=== PATIENT | female | born 1990 | race Caucasian/White ===

== ENCOUNTER → 2017-11-26 | Outpatient (CLI) | payer OTHER ==
[~2017-11-26] MED LIST: ACYC200 PO; ACYC800 PO; AMOX500 PO; DIPH50; HYDACE5 PO; IBUP600 PO; IBUP800 PO; Norco 10-325 T1 EACH PO; Norco 5-325 Ta1 EACH PO; OXYACE5T PO; PRED20 PO; Robaxin500 MG PO; TRIA80TC TOP
[2017-11-27 12:39] LABS: Source Cervix
== END ==
LOC: LAB EV 17:11
PROVIDERS: Nurse Practitioner Family
DX: Z01.419 Encounter for gynecological examination (general) (routine) without abnormal findings (principal)
CPT/HCPCS: 87491; 87591; G0145

== ENCOUNTER → 2018-04-07 | Outpatient (CLI) | payer OTHER | END | disposition home or self-care (01) | LOC: LAB EV 09:04 → LAB SHORT 09:04 | DX: K12.1 Other forms of stomatitis (principal) | CPT/HCPCS: 87070; 87075; 87205 ==

== ENCOUNTER → 2018-12-23 | Outpatient (CLI) | payer OTHER | LOC: LAB SHORT 17:17 → LAB 17:17 | PROVIDERS: Nurse Practitioner Family | DX: Z01.419 Encounter for gynecological examination (general) (routine) without abnormal findings (principal) | CPT/HCPCS: 87624; 87625; G0145 ==

== ENCOUNTER → 2019-03-03 | Outpatient (CLI) | payer OTHER | END | disposition home or self-care (01) | LOC: LAB SHORT 12:52 → PLD 12:52 | DX: R87.618 Other abnormal cytological findings on specimens from cervix uteri (principal); R87.610 Atypical squamous cells of undetermined significance on cytologic smear of cervix (ASC-US) | CPT/HCPCS: 88305 ==

== ENCOUNTER 2019-06-12 13:36 | Emergency (ER) | payer OTHER ==
[~2019-06-12] VITALS: Ht 165.1 cm; Wt 74.8 kg
[2019-06-12] MEDS ORDERED: ONDA4ODT MM (14:30)
== END 2019-06-12 14:54 | disposition home or self-care (01) ==
LOC: ER 13:36
DX: R11.2 Nausea with vomiting, unspecified (principal); R19.7 Diarrhea, unspecified; Z88.5 Allergy status to narcotic agent
CPT/HCPCS: 99283

== ENCOUNTER → 2023-05-18 | Outpatient (CLI) | payer OTHER ==
[~2023-05-18] MED LIST changes: +ONDA4ODT MM
[2023-05-18 13:24] LABS: BASOPHILS ABSOLUTE AUTO 0.03 K/mm3 (0.00-0.23); BASOPHILS PERCENT AUTO 0 % (0-2); EOSINOPHILS ABSOLUTE AUTO 0.03 K/mm3 (0.00-0.68); EOSINOPHILS PERCENT AUTO 0 % (0-6); Hematocrit 41.2 % (33.0-51.0); Hemoglobin 14.6 g/dL (11.5-16.0); IMMATURE GRAN ABSOLUTE AUTO 0.02 K/mm3 (0.00-0.10); IMMATURE GRAN PERCENT AUTO 0 % (0-1); LYMPHOCYTES ABSOLUTE AUTO 1.77 K/mm3 (0.84-5.20); LYMPHOCYTES PERCENT AUTO 22 % (21-46); MONOCYTES ABSOLUTE AUTO 0.51 K/mm3 (0.16-1.47); MONOCYTES PERCENT AUTO 6 % (4-13); Mean Corpuscular HGB 30.2 pg (26.0-34.0); Mean Corpuscular HGB Conc 35.4 g/dL (31.5-36.5); Mean Corpuscular Volume 85 fL (80-100); Mean Platelet Volume 11.8 fL (9.1-12.4); NEUTROPHILS PERCENT AUTO 70 % (41-73); Platelet Count 257 K/mm3 (150-400); RDW Coefficient Variation 12.9 % (11.7-14.2); RDW Standard Deviation 39.8 fL (35.1-46.3); Red Blood Cell Count 4.83 M/mm3 (3.80-5.20); White Blood Cell Count 7.96 K/mm3 (4.00-11.30)
[2023-05-18 13:42] LABS: Albumin, Blood 4.4 g/dL (3.4-5.0); Albumin/Globulin Ratio 1.2 (0.8-1.8); Bilirubin, Total 0.4 mg/dL (0.1-1.0); Bun/Creatinine Ratio 13.3 (12.0-20.0); Calcium, Blood 9.4 mg/dL (8.5-10.1); Creatinine, Blood 1.05 mg/dL (0.40-1.00); Globulin, Blood 3.6 g/dL (2.2-4.0); Potassium, Blood 3.7 mmol/L (3.5-5.5); Thyroid Stimulating Hormone 1.193 uIU/mL (0.360-4.800)
== END ==
LOC: LAB 13:16 → LAB SHORT 13:16
PROVIDERS: Physician Assistant Medical
DX: R42 Dizziness and giddiness (principal)
CPT/HCPCS: 80053; 84443; 85025

== ENCOUNTER → 2023-10-04 | Outpatient (CLI) | payer OTHER | END | disposition home or self-care (01) | LOC: LAB SHORT 15:30 → LAB 15:30 | DX: N93.8 Other specified abnormal uterine and vaginal bleeding (principal) | CPT/HCPCS: 88305 ==

== ENCOUNTER → 2023-10-04 | Outpatient (CLI) | payer OTHER ==
[2023-10-07 12:10] LABS: HPV 16 Negative (Negative); HPV 18 Negative (Negative); HPV OTHER HR TYPES Negative (Negative)
== END ==
LOC: LAB SHORT 11:15 → LAB 11:15
PROVIDERS: Obstetrics & Gynecology
DX: Z01.419 Encounter for gynecological examination (general) (routine) without abnormal findings (principal)
CPT/HCPCS: 87624; G0145

== ENCOUNTER 2023-11-10 05:53 | Day surgery (SDC) | payer OTHER ==
[~2023-11-10] VITALS: Ht 165.1 cm; Wt 86.3 kg
[2023-11-10] VITALS (13 sets, daily range): BP systolic 110–135; BP diastolic 64–80
[~2023-11-10 05:53] MED LIST changes: +FERSU300 PO
--- NOTE | 2023-11-10 07:16 | NUR ---
PT HAS A CLEAN, DRY, AND INTACT ABD BUT HAS A SCABBED OVER SORE THAT IS DRY NEAR THE CENTER OF THE BREASTS, ABOVE THE ZYPHOID PROCESS.
--- NOTE | 2023-11-10 11:13 | NUR ---
PATIENT ARRIVED FROM PACU AT THIS TIME. POD 0 LAP HYSTER PATIENT IS A&OX4. VS ARE WNL AND IS ON RA AT THIS TIME. PATIENTS ABD HAS X4 LAP SITES WITH WOUND GLUE THAT ARE C/D/I. PATIENT DENIES NAUSEA OR VOMITING AT THIS TIME. PATIENTS JD PAD IS ALSO C/D/I AT THIS TIME. PATIENT IS LAYING IN BED WITH CALL LIGHT IN REACH AND SPOUSE AT BEDSIDE. SHE IS TOLERATING SMALL AMOUNTS OF PO INTAKE AT THIS TIME.
[2023-11-10] MEDS ORDERED: IBUP800 PO (12:29)
[2023-11-10] MEDS ORDERED: ACET500 PO (12:29)
[2023-11-10] MEDS ORDERED: OXYC5 PO (12:29)
[2023-11-10] MEDS ORDERED: ONDA4ODT MM (12:29)
--- NOTE | 2023-11-10 17:54 | NUR ---
DISCHARGE SUMMARY POD0 LAP HYSTER, A/OX4, VSS, TOLERATING PO, PAIN WELL MANAGED, AMBULATING, VOIDING. REMOVED IV ACCESS. DISCUSSED DISCHARGE INFORMATION WITH HER INCLUDING HOME CARE, MEDICATIONS, AND FOLLOW UP APPOINTMENTS. NO QUESTIONS AT THIS TIME.
--- NOTE | 2023-11-11 10:26 | NUR ---
11/11/23 1026 Mitzi Brooks VERIFICATIONS: EDIT CHART.
== END 2023-11-10 17:47 | disposition home or self-care (01) ==
LOC: ORSCMMR 05:53 → ORD 07:30 → ORSCMMR 07:30 → SURS 11:11 → ORSCMMR 17:47
PROVIDERS: Obstetrics & Gynecology
PROC: 0UT7FZZ Resection of Bilateral Fallopian Tubes, Via Natural or Artificial Opening With Percutaneous Endoscopic Assistance (ICD-10-PCS; principal; 2023-11-10 07:30)
PROC: 0UT9FZZ Resection of Uterus, Via Natural or Artificial Opening With Percutaneous Endoscopic Assistance (ICD-10-PCS; principal; 2023-11-10 07:30)
DX: N93.8 Other specified abnormal uterine and vaginal bleeding (principal); N70.11 Chronic salpingitis; N83.8 Other noninflammatory disorders of ovary, fallopian tube and broad ligament
CPT/HCPCS: 86850; 86900; 86901; 88307; A9270; J0690; J0780; J1100; J1885; J2250; J2405; J2704; J2765; J3010; J7120

== ENCOUNTER 2023-11-11 19:36 | Emergency (ER) | payer OTHER ==
[~2023-11-11] VITALS: Ht 165.1 cm; Wt 83.9 kg
[~2023-11-11 19:36] MED LIST changes: +ACET500 PO; +OXYC5 PO
[2023-11-11 20:24] LABS: BASOPHILS ABSOLUTE AUTO 0.04 K/mm3 (0.00-0.23); BASOPHILS PERCENT AUTO 0 % (0-2); EOSINOPHILS PERCENT AUTO 0 % (0-6); Hematocrit 35.2 % (33.0-51.0); Hemoglobin 12.3 g/dL (11.5-16.0); IMMATURE GRAN PERCENT AUTO 1 % (0-1); LYMPHOCYTES ABSOLUTE AUTO 1.92 K/mm3 (0.84-5.20); LYMPHOCYTES PERCENT AUTO 9 % (21-46); MONOCYTES ABSOLUTE AUTO 2.06 K/mm3 (0.16-1.47); MONOCYTES PERCENT AUTO 10 % (4-13); Mean Corpuscular HGB 29.9 pg (26.0-34.0); Mean Corpuscular HGB Conc 34.9 g/dL (31.5-36.5); Mean Corpuscular Volume 86 fL (80-100); Mean Platelet Volume 11.3 fL (9.1-12.4); NEUTROPHILS ABSOLUTE AUTO 17.47 K/mm3 (1.96-9.15); NEUTROPHILS PERCENT AUTO 81 % (41-73); Platelet Count 297 K/mm3 (150-400); RDW Coefficient Variation 14.1 % (11.7-14.2); Red Blood Cell Count 4.11 M/mm3 (3.80-5.20); White Blood Cell Count 21.59 K/mm3 (4.00-11.30)
[2023-11-11 20:49] LABS: Albumin, Blood 3.9 g/dL (3.4-5.0); Albumin/Globulin Ratio 1.2 (0.8-1.8); Bilirubin, Total 0.5 mg/dL (0.1-1.0); Bun/Creatinine Ratio 17.2 (12.0-20.0); Calcium, Blood 9.4 mg/dL (8.5-10.1); Creatinine, Blood 0.81 mg/dL (0.40-1.00); Globulin, Blood 3.3 g/dL (2.2-4.0); Potassium, Blood 3.7 mmol/L (3.5-5.5); Total Protein, Blood 7.2 g/dL (6.4-8.2)
[2023-11-12] MEDS ORDERED: METO10 PO (00:37)
[2023-11-12 01:33] VITALS: BP 148/86
== END 2023-11-12 01:34 | disposition home or self-care (01) ==
LOC: ER 19:36
PROVIDERS: Physician Assistant
DX: K91.0 Vomiting following gastrointestinal surgery (principal); E86.0 Dehydration; D72.829 Elevated white blood cell count, unspecified; Z79.899 Other long term (current) drug therapy; Z88.5 Allergy status to narcotic agent
CPT/HCPCS: 80053; 85025; 96361; 96374; 96375; 99283-25; J2405; J2765; J3010; J7030

== ENCOUNTER → 2025-01-03 | Outpatient (CLI) | payer OTHER ==
[~2025-01-03] MED LIST changes: +METO10 PO
[2025-01-03 14:14] LABS: Bacterial Vaginosis PCR Negative (NEGATIVE); Candida Group, PCR NOT DETECTED (NOT DETECT); Candida glabrata-krusei, PCR NOT DETECTED (NOT DETECT)
== END ==
LOC: LAB 10:22 → LAB SHORT 10:22
PROVIDERS: Advanced Practice Midwife
DX: N76.0 Acute vaginitis (principal)
CPT/HCPCS: 81515